=== PATIENT | male | born 1995 | race Caucasian/White ===

== ENCOUNTER 2018-07-19 21:06 | Emergency (ER) | payer MEDICAID ==
[~2018-07-19] VITALS: Ht 182.9 cm; Wt 131.5 kg
[2018-07-19 21:25] VITALS: Ht 182.9 cm; Wt 131.5 kg
[2018-07-19 22:43] VITALS: BP 149/92
== END 2018-07-19 22:35 | disposition home or self-care (01) ==
LOC: ED 21:06
DX: S83.92XA Sprain of unspecified site of left knee, initial encounter (principal); Z98.890 Other specified postprocedural states; X58.XXXA Exposure to other specified factors, initial encounter; Y93.89 Activity, other specified; Y92.89 Other specified places as the place of occurrence of the external cause; Y99.8 Other external cause status